=== PATIENT | female | born 1945 | race Caucasian/White ===

== ENCOUNTER 2016-04-05 08:36 | Day surgery (SDC) | payer MEDICARE, BC ==
[~2016-04-05] VITALS: Ht 160 cm; Wt 74.6 kg
[~2016-04-05 08:36] MED LIST: ALLEGRA ALLERG180 MG PO; BENADRYL25 M2 PO; CADUET 2.5 MG PO; CAL-MAG1 TAB PO; CELEBREX 1100 MG/CAP PO; COZAAR 50MG50 MG/TAB PO; CYMBALTA 30MG30 MG PO; FLEXERIL 1010 MG/TAB PO; FLONASE NASAL S16 GM; IMDUR 30MG30 MG/TAB PO; MULTIPLE VITAMI1 CAP PO; NEXIUM 40MG40 MG PO; NORVASC 10MG10 MG PO; PERCOCET 325 MG1 TA2 PO; PROBIOTIC-MAJOR PO; PROVENTIL0.09 MG/A1 IH; SINGULAIR 110 MG/TAB PO; TYLENOL 325MG325 MG; TYLENOL 500MG500 MG PO; VITAMIN E 400 U4001 PO; ZIAC 2.5/6.25MG1 TAB PO; [UNRECOGNIZED DRUG - OTHER] PO; [UNRECOGNIZED DRUG - OTHER] PO
[2016-04-05 09:21] VITALS: BP 185/64; PULSE 99; TEMP 98.2
[2016-04-05 09:44] LABS: PROTHROMBIN TIME 11.6 SECONDS (9.7-12.8)
[2016-04-05 14:45] VITALS: BP 132/49; PULSE 107; TEMP 98.5
[2016-04-05 15:00] VITALS: BP 134/55; PULSE 105
[2016-04-05] MEDS ORDERED: ULTRAM 50MG TAB50 MG PO (15:09)
[2016-04-05] MEDS ORDERED: OXY IR5 MG PO (15:10)
[2016-04-05 15:15] VITALS: BP 121/46; PULSE 102
[2016-04-05 15:46] LABS: PH 5 (5-8); URINE APPEARANCE Turbid; URINE BACTERIA Many /hpf; URINE BILIRUBIN Negative (NEGATIVE); URINE BLOOD 1+ (NEGATIVE); URINE COLOR Amber; URINE GLUCOSE Negative (NEGATIVE); URINE KETONE Negative (NEGATIVE); URINE UROBILINOGEN Negative (NEGATIVE)
== END 2016-04-05 15:55 | disposition home or self-care (01) ==
LOC: SDCO 08:36
PROVIDERS: Orthopaedic Surgery
DX: M75.111 Incomplete rotator cuff tear or rupture of right shoulder, not specified as traumatic (principal); M75.41 Impingement syndrome of right shoulder
CPT/HCPCS: A4565; C1713; J0171; J0330; J0690; J1100; J1885; J2250; J2370; J2405; J2704; J2710; J2795; J3010; J7120

== ENCOUNTER → 2019-12-18 | Outpatient (CLI) | payer MEDICARE, BC ==
[~2019-12-18] MED LIST changes: +OXY IR5 MG PO; +ULTRAM 50MG TAB50 MG PO
== END ==
LOC: COL.RAD 07:41
DX: M25.532 Pain in left wrist (principal)
CPT/HCPCS: J3301; Q9967

== ENCOUNTER → 2021-07-07 | Outpatient (CLI) | payer MEDICARE, BC | LOC: COL.CARD 09:19 | DX: G20 Parkinson's disease (principal); R55 Syncope and collapse ==